=== PATIENT | female | born 2000 | race Caucasian/White ===

== ENCOUNTER → 2020-09-10 | Outpatient (CLI) | payer OTHER | LOC: LAB 18:54 → LAB SHORT 18:54 | DX: Z11.8 Encounter for screening for other infectious and parasitic diseases (principal) | CPT/HCPCS: 87491 ==

== ENCOUNTER → 2021-07-30 | Outpatient (CLI) | payer OTHER ==
[2021-08-03 14:09] LABS: HPV 16 Negative (Negative); HPV 18 Negative (Negative); HPV OTHER HR TYPES Negative (Negative)
== END ==
LOC: LAB SHORT 09:20 → LAB 09:20
PROVIDERS: Student in an Organized Health Care Education/Training Program
DX: Z01.419 Encounter for gynecological examination (general) (routine) without abnormal findings (principal)
CPT/HCPCS: 87070; 87205; 87624; G0123

== ENCOUNTER 2022-10-13 19:51 | Emergency (ER) | payer OTHER ==
[~2022-10-13] VITALS: Ht 160 cm; Wt 79.4 kg
[2022-10-13 21:26] LABS: Influenza A, PCR NEGATIVE (NEGATIVE); Influenza B, PCR NEGATIVE (NEGATIVE); Resp Syncytial Virus, PCR NEGATIVE (NEGATIVE)
[2022-10-13 21:32] LABS: SARS-Cov-2 (COVID-19) PCR, MMC POSITIVE (NEGATIVE)
== END 2022-10-13 21:45 | disposition home or self-care (01) ==
LOC: ER 19:51
PROVIDERS: Physician Assistant
DX: U07.1 COVID-19 (principal)
CPT/HCPCS: 0241U

== ENCOUNTER → 2024-09-06 | Outpatient (CLI) | payer OTHER | LOC: LAB 17:40 → LAB SHORT 17:40 | DX: R30.0 Dysuria (principal); R30.9 Painful micturition, unspecified | CPT/HCPCS: 87077; 87086; 87186 ==

== ENCOUNTER 2025-07-31 14:56 | Emergency (ER) | payer OTHER ==
[~2025-07-31] VITALS: Ht 157.5 cm; Wt 79.4 kg
[2025-07-31 15:30] VITALS: BP 130/95
[2025-07-31] MEDS ORDERED: PSEU120ER PO (15:38)
== END 2025-07-31 15:40 | disposition home or self-care (01) ==
LOC: ER 14:56
DX: J06.9 Acute upper respiratory infection, unspecified (principal); Z79.899 Other long term (current) drug therapy
CPT/HCPCS: 99282